=== PATIENT | male | born 1980 | race Caucasian/White ===

== ENCOUNTER 2021-04-15 19:40 | Day surgery (SDC) ==
[2021-04-15] MEDS ORDERED: Nitroglycerin 0.4 MG TAB 1 EACH ONE (21:30)
[2021-04-15] MEDS ORDERED: PROPOFOL 200 MG/20 ML VIAL ONE (23:23)
[2021-04-15] MEDS ORDERED: Dexamethasone 20 MG/5 ML VIAL ONE (23:23)
[2021-04-15] MEDS ORDERED: Lidocaine 1% PF 5 ML VIAL ONE (23:23)
[2021-04-15] MEDS ORDERED: Ondansetron PF 4 MG/2 ML Vial ONE (23:23)
[2021-04-15] MEDS ORDERED: ePHEDrine 50 MG/ML VIAL ONE (23:23)
[2021-04-15] MEDS ORDERED: Succinylcholine 200 MG/10 ml SYRINGE FS ONE (23:23)
[2021-04-16] MEDS ORDERED: Fentanyl 250 MCG/5 ML VIAL ONE (00:13)
[2021-04-16 00:24] LABS: SARS-CoV-2 NAA Rapid Test Not Detected (NotDetected)
== END 2021-04-16 01:06 | disposition home or self-care (01) ==
LOC: ERS 19:40 → SDC/OP 23:15
PROVIDERS: ATTEND Internal Medicine Gastroenterology
PROC: 0DB38ZX Excision of Lower Esophagus, Via Natural or Artificial Opening Endoscopic, Diagnostic (ICD-10-PCS; principal; 2021-04-15)
PROC: 0DB18ZX Excision of Upper Esophagus, Via Natural or Artificial Opening Endoscopic, Diagnostic (ICD-10-PCS; principal; 2021-04-15)
PROC: 0DC38ZZ Extirpation of Matter from Lower Esophagus, Via Natural or Artificial Opening Endoscopic (ICD-10-PCS; principal; 2021-04-15)
DX: T18.128A Food in esophagus causing other injury, initial encounter (principal); K22.89 Other specified disease of esophagus; G43.909 Migraine, unspecified, not intractable, without status migrainosus; Z88.0 Allergy status to penicillin; Z88.5 Allergy status to narcotic agent; Z20.822 Contact with and (suspected) exposure to COVID-19
CPT/HCPCS: 70360; 88305; 96372; J1100; J1610; J2405; J2704; J3010; J3490; U0002

== ENCOUNTER 2022-03-02 10:06 | Emergency (ER) | payer OTHER, SELFPAY ==
[2022-03-02] MEDS ORDERED: Orphenadrine Citrate 60 MG/2 ML VIAL ONE (11:47)
== END 2022-03-02 12:26 | disposition home or self-care (01) ==
LOC: ERS 10:06
DX: S23.3XXA Sprain of ligaments of thoracic spine, initial encounter (principal); X50.0XXA Overexertion from strenuous movement or load, initial encounter
CPT/HCPCS: 96372; 99283; J2360